=== PATIENT | female | born 1975 | race Caucasian/White ===

== ENCOUNTER → 2021-04-23 10:21 | Outpatient (BNVA) | payer OTHER, SELFPAY | PROVIDERS: PCP Internal Medicine; Referring Provider Internal Medicine; Visit Provider Physician Assistant | DX: E66.9 Obesity, unspecified (principal); K91.2 Postsurgical malabsorption, not elsewhere classified; K22.70 Barrett's esophagus without dysplasia; G47.33 Obstructive sleep apnea (adult) (pediatric); F31.9 Bipolar disorder, unspecified; Z68.33 Body mass index [BMI] 33.0-33.9, adult; Z98.84 Bariatric surgery status; Z99.89 Dependence on other enabling machines and devices | CPT/HCPCS: 99202 ==

== ENCOUNTER 2021-04-28 08:58 | Outpatient (REF) | payer OTHER, SELFPAY ==
--- NOTE | ~2021-04-28 | FL_ITS ---
EXAMINATION: XR GI SERIES CLINICAL INFORMATION: Previous gastric bypass surgery. Now has increasing weight and is reevaluating options for gastric surgery. COMPARISON: None TECHNIQUE: Routine upper GI air-contrast study was performed. FINDINGS: Following oral administration of thick barium and effervescent granules, there is normal propagation of bolus from the oral cavity through the pharynx, esophagus into the stomach without any evidence of obstruction, narrowing or stricture. There is evidence of previous gastric bypass surgery likely with Tashi- en-Y anastomosis. There is mild gastroesophageal reflux with hiatal hernia. The mucosal pattern is unremarkable. FLUOROSCOPY TIME: 2.1 minutes DOSE AREA PRODUCT: 40.003 uGy-m2 (microgray-meter squared) FL/FL upper GI series IMPRESSION: Remote gastric bypass surgical changes 3 years ago. There is instant gastric emptying seen into the duodenum. There is a mild gastroesophageal reflux with a small hiatal hernia.
[2021-04-28 10:47] LABS: Estimated Average Glucose 103 mg/dL; Hemoglobin A1c % 5.2 %
[2021-04-28 11:19] LABS: Alanine Aminotransferase 26 U/L (0-31); Albumin Level 4.5 g/dL (3.5-5.0); Alkaline Phosphatase 53 U/L (39-117); Anion Gap 12 (12-20); Aspartate Amino Transferase 34 U/L (5-31); Bilirubin Total 0.3 mg/dL (0.0-1.0); Blood Urea Nitrogen 15 mg/dL (9-16); C Reactive Protein 0.24 mg/dL (< or = 0.50); Calcium 9.5 mg/dL (8.4-10.2); Carbon Dioxide 30 mmol/L (22-29); Chloride 104 mmol/L (96-108); Cholesterol 181 mg/dL; Estimated Glomerular Filt Rate > 60; Glucose Random 92 mg/dL (60-115); HDL Cholesterol 85 mg/dL; LDL Cholesterol Calculated 88 mg/dl; Potassium 4.7 mmol/L (3.3-5.1); Sodium 141 mmol/L (135-145); Total Protein 7.3 g/dL (6.5-8.0); Triglycerides 40 mg/dL
[2021-04-28 11:20] LABS: TSH reflex Free T4 2.13 uIU/mL (0.32-4.0)
[2021-04-29 13:31] LABS: Calcium (PTHI) 9.7 mg/dL (8.6-10.2); PTHI 116 pg/mL (14-64)
[2021-04-29 17:12] LABS: Insulin Level Total 4.6 uIU/mL
[2021-05-01 17:31] LABS: Zinc 75 mcg/dL (60-130)
[2021-05-02 11:56] LABS: Vitamin B1 34 nmol/L (8-30)
[2021-05-03 21:32] LABS: Vitamin A 40 mcg/dL (38-98)
== END 2021-04-28 08:59 | disposition home or self-care (01) ==
LOC: HO.XRAY 08:58
PROVIDERS: Physician Assistant; PCP Internal Medicine; Visit Provider Surgery
DX: Z01.818 Encounter for other preprocedural examination (principal); E66.9 Obesity, unspecified; K21.9 Gastro-esophageal reflux disease without esophagitis; K22.70 Barrett's esophagus without dysplasia; Z98.84 Bariatric surgery status
CPT/HCPCS: 36415; 74240; 80053; 80061; 83036; 83525; 83970; 84425; 84443; 84590; 84630; 86140

== ENCOUNTER → 2021-05-05 09:20 | Outpatient (BNVA) | payer OTHER, SELFPAY | PROVIDERS: PCP Internal Medicine; Referring Provider Internal Medicine; Visit Provider Physician Assistant | DX: E66.9 Obesity, unspecified (principal); F31.9 Bipolar disorder, unspecified; Z98.84 Bariatric surgery status | CPT/HCPCS: 99212 ==

== ENCOUNTER → 2021-05-14 08:15 | Outpatient (BNVA) | payer OTHER, SELFPAY | PROVIDERS: PCP Internal Medicine; Visit Provider Dietitian, Registered | DX: E66.9 Obesity, unspecified (principal); Z68.32 Body mass index [BMI] 32.0-32.9, adult | CPT/HCPCS: 97802 ==

== ENCOUNTER 2021-06-02 08:04 | Outpatient (REF) | payer OTHER, SELFPAY ==
[2021-06-02 09:06] LABS: Vitamin D 25-OH Total 50.2 ng/mL (>30)
[2021-06-06 09:32] LABS: Parathyroid Hormone Related Pr 20 pg/mL (14-27)
== END 2021-06-02 08:05 | disposition home or self-care (01) ==
LOC: HO.LAB 08:04
PROVIDERS: PCP Internal Medicine; Visit Provider Physician Assistant
DX: E34.9 Endocrine disorder, unspecified (principal); Z90.3 Acquired absence of stomach [part of]
CPT/HCPCS: 36415; 82306; 83519

== ENCOUNTER → 2021-06-11 10:19 | Outpatient (BNVA) | payer OTHER, SELFPAY | PROVIDERS: PCP Internal Medicine; Referring Provider Internal Medicine; Visit Provider Physician Assistant | DX: E66.9 Obesity, unspecified (principal); K21.9 Gastro-esophageal reflux disease without esophagitis; K22.70 Barrett's esophagus without dysplasia; K44.9 Diaphragmatic hernia without obstruction or gangrene; Z98.84 Bariatric surgery status; Z91.02 Food additives allergy status; Z91.010 Allergy to peanuts | CPT/HCPCS: 99212 ==

== ENCOUNTER → 2021-08-04 09:18 | Outpatient (BNVA) | payer OTHER, SELFPAY | PROVIDERS: PCP Internal Medicine; Referring Provider Internal Medicine; Visit Provider Physician Assistant | DX: E66.9 Obesity, unspecified (principal); Z98.84 Bariatric surgery status; Z68.33 Body mass index [BMI] 33.0-33.9, adult | CPT/HCPCS: 99212 ==

== ENCOUNTER → 2021-11-07 08:10 | Outpatient (BNVA) | payer OTHER, SELFPAY | PROVIDERS: PCP Internal Medicine; Visit Provider Physician Assistant | DX: E66.9 Obesity, unspecified (principal); Z68.36 Body mass index [BMI] 36.0-36.9, adult; F31.9 Bipolar disorder, unspecified; Z98.84 Bariatric surgery status | CPT/HCPCS: Q3014 ==

== ENCOUNTER → 2021-12-05 08:30 | Outpatient (BNVA) | payer OTHER, SELFPAY | PROVIDERS: PCP Internal Medicine; Visit Provider Physician Assistant | DX: Z11.0 Encounter for screening for intestinal infectious diseases (principal); E66.9 Obesity, unspecified; F31.9 Bipolar disorder, unspecified; K21.9 Gastro-esophageal reflux disease without esophagitis; Z98.84 Bariatric surgery status; Z68.35 Body mass index [BMI] 35.0-35.9, adult | CPT/HCPCS: 99211; 99212 ==

== ENCOUNTER 2021-12-08 15:13 | Outpatient (REF) | payer OTHER, SELFPAY ==
[2021-12-09 13:06] LABS: H Pylori Breath Test Negative (Negative)
== END 2021-12-08 15:14 | disposition home or self-care (01) ==
LOC: HO.LNP 15:13
PROVIDERS: Visit Provider Physician Assistant Surgical
DX: Z01.818 Encounter for other preprocedural examination (principal); Z11.0 Encounter for screening for intestinal infectious diseases
CPT/HCPCS: 83013